=== PATIENT | male | born 1980 | race Caucasian/White ===

== ENCOUNTER → 2016-11-20 | Outpatient (CLI) | payer OTHER ==
[~2016-11-20] MED LIST: CIPRO HC OTIC S10 ML OT; PHENERGAN PO
--- NOTE | ~2016-11-20 | CR63 ---
[facility] A Service of [facility] RADIOLOGY TEXT RESULTS PATIENT: SHALINI GRIFFITHS LOCATION: [facility] : 78 UNIT #: [id number] AGE: [address]: Kim Hauser SEX: M ORDER DR: [id number] [address] [address] [id number] O MR#: [id number] Acc #: [id number] NAME: SHALINI GRIFFITHS : 1980 SEX: M STUDY DATE/TIME: 11/20/2016 9:21 UNIT: [facility] ROOM: STUDY DESCRIPTION: CR Chest 2 View Attending Physician: Kim Hauser A.P.R.N. Referring Physician: Kim Hauser A.P.R.N. Ordering Physician: Kim Hauser A.P.R.N. Primary Care Physician: Kim Hauser A.P.R.N. MEDICAL IMAGING REPORT This report is preliminary unless electronic signature is present. EXAM Chest 11/20/2016, [facility]. HISTORY 36-year-old male patient with chest congestion, cough 9 days duration. Patient also gives history of sinus infection. Short of breath, high blood pressure. 19 year smoking history. COMPARISON Comparison chest none. FINDINGS Two-view chest demonstrates a mild cardiac enlargement. Interstitial markings are prominent in both lungs. There are no infiltrates. I see no effusions. Bony thorax appears unremarkable. IMPRESSION 1. Mild cardiomegaly. 2. Interstitial prominence consistent with fibrosis. No comparison studies. No acute chest finding suspect. Dictated by... Alphonso Dupont M.D. THIS IS AN ELECTRONICALLY VERIFIED REPORT Alphonso Dupont M.D. at 11/20/2016 2:38 PM ANTONIA/urbano TD: 11/20/2016 11:59 JOB #: [id number] MEDICAL IMAGING REPORT [facility] A Service of [facility] RADIOLOGY TEXT RESULTS PATIENT: SHALINI GRIFFITHS LOCATION: [facility] #: [id number] : 78 UNIT #: [id number] AGE: [address]: Kim Hauser SEX: M ORDER DR: Page 1 of 1
== END | disposition home or self-care (01) ==
LOC: SRAD 09:16
DX: R05 Cough (principal); R91.8 Other nonspecific abnormal finding of lung field; I51.7 Cardiomegaly
CPT/HCPCS: 71020

== ENCOUNTER → 2016-12-31 | Outpatient (CLI) | payer OTHER ==
--- NOTE | ~2016-12-31 | CT57 ---
[facility] A Service of [facility] RADIOLOGY TEXT RESULTS PATIENT: SHALINI GRIFFITHS LOCATION: [facility] : 78 UNIT #: [id number] AGE: [address]: Carol Westfall SEX: M ORDER DR: [id number] [facility] [address] [place], [place] [address] [id number] O MR#: [id number] Acc #: [id number] NAME: SHALINI GRIFFITHS. : 1980 SEX: M STUDY DATE/TIME: 12/31/2016 9:08 UNIT: [facility] ROOM: STUDY DESCRIPTION: CT Chest Wo Cont Attending Physician: Carol Westfall A.P.R.N. Referring Physician: Carol Westfall A.P.R.N. Ordering Physician: Carol Westfall A.P.R.N. Primary Care Physician: Kim Hauser A.P.R.N. MEDICAL IMAGING REPORT This report is preliminary unless electronic signature is present EXAM CT chest without contrast INDICATIONS Pneumonia 6 months ago. Follow up. Dry cough for the past [address] of the chest. COMPARISON STUDIES This CT exam was performed with one or more of the following radiation dose reduction techniques: automatic exposure control, adjustment of mA and/or kV according to patient size, and iterative reconstruction. COMPARISON STUDIES No dense consolidation, pleural fluid or pneumothorax. No suspicious pulmonary nodule. There is very mild diffuse reticulonodular prominence in both lungs. It is not clear whether this finding is some interstitial or alveolar on this study. There is no pleural fluid. No pneumothorax. No adenopathy. Hepatic steatosis. No acute findings are seen in the included upper abdomen. No aggressive appearing bone lesion. IMPRESSION 1. No dense consolidation or suspicious pulmonary nodule. 2. Very subtle reticulonodular prominence in both lungs. This is nonspecific finding, and it is not clear on this study whether it is interstitial or alveolar. If the patient's symptoms warrant, this may be better evaluated with high-resolution chest CT. Dictated by... STS. [facility] A Service of [facility] RADIOLOGY TEXT RESULTS PATIENT: SHALINI GRIFFITHS LOCATION: [facility] : 78 UNIT #: [id number] AGE: [address]: Carol Westfall SEX: M ORDER DR: Jordan Acosta M.D. THIS IS AN ELECTRONICALLY VERIFIED REPORT Jordan Acosta M.D. at 01/01/2017 8:28 AM DIANA/sydney TD: 12/31/2016 19:59 JOB #: [id number] MEDICAL IMAGING REPORT Page 1 of 1 COPY
== END | disposition home or self-care (01) ==
LOC: CCAT 08:07
DX: J15.8 Pneumonia due to other specified bacteria (principal); R06.02 Shortness of breath
CPT/HCPCS: 71250; 94060; 94726; 94729